=== PATIENT | male | born 1945 | race Two or more races ===

== ENCOUNTER 2019-01-12 06:35 | Emergency (ER) | payer MEDICARE, BC ==
[~2019-01-12] VITALS: Ht 193 cm; Wt 104.8 kg
[~2019-01-12 06:35] MED LIST: AMIO200T4; AMIO200T4 PO; LOSA1TAB42; LOSA1TAB42 PO; METO-356 PO; METO25TA6; RANO500T3 PO; RIVA10TA PO; RIVA20TA
[2019-01-12 07:07] LABS: *BILIRUBIN,URIN NEGATIVE (NEGATIVE); *CLARITY,URINE CLEAR (CLEAR); *COLOR,URINE LIGHT YELLOW (YELLOW); *KETONES,URINE NEGATIVE (NEGATIVE); *UROBILINOGEN,URINE 0.2 E.U./dl (NORMAL); LEUKOCYTE ESTERASE ,URINE NEGATIVE (NEGATIVE); NITRITE, URINE NEGATIVE (NEGATIVE); UGLUCOSE NEGATIVE (NEGATIVE)
[2019-01-12 07:12] LABS: *BLOOD, URINE TRACE LYSED (NEGATIVE)
[2019-01-12 07:15] LABS: SQUAMOUS EPITHELIAL CELL,UR NONE SEEN /HPF (NONE SEEN)
[2019-01-12 07:16] LABS: BACTERIA,URINE NONE SEEN /HPF (NONE SEEN); RBC,URINE 0-3 /HPF (0-3); WBC,URINE 0-3 /HPF (0-3)
[2019-01-12 07:26] VITALS: BP 149/100
--- NOTE | 2019-01-12 07:26 | NUR ---
Patient discharged to home in stable conditon. Written and verbal after care instructions given. Patient verbalizes understanding of instructions.
== END 2019-01-12 07:27 | disposition home or self-care (01) ==
LOC: ER 06:37
DX: E27.8 Other specified disorders of adrenal gland (principal); I10 Essential (primary) hypertension; R35.0 Frequency of micturition; R39.15 Urgency of urination; Z79.899 Other long term (current) drug therapy
CPT/HCPCS: A4663

== ENCOUNTER 2020-02-15 00:13 | Emergency (ER) | payer MEDICARE, BC ==
[~2020-02-15] VITALS: Ht 193 cm; Wt 108.9 kg
[2020-02-15] MEDS ORDERED: TAMS-3 PO (00:28)
--- NOTE | 2020-02-15 01:05 | NUR ---
Dr Waller at bedside.
[2020-02-15] MEDS ORDERED: KETOROLAC TROMETHAMINE 15 MG INJ IVP ONE (01:15)
[2020-02-15] MEDS ORDERED: IV NORMAL SALINE 500 ML BAG IV ONE (01:15)
[2020-02-15 01:26] LABS: BASOPHILS % (AUTO) 0.8 % (0.0-2.0); EOSINOPHILS # (AUTO) 0.1 K/uL (0.0-0.7); EOSINOPHILS % (AUTO) 2.2 % (0.0-7.0); HEMATOCRIT 43.9 % (36.7-47.1); LYMPHOCYTES % (AUTO) 19.8 % (20.5-51.5); MEAN CORPUSCULAR HEMOGLOBIN 31.1 uug (23.8-33.4); MEAN CORPUSCULAR HGB CONC 34 g/dL (32.5-36.3); MONOCYTES # (AUTO) 0.5 K/uL (2.0-10.0); MONOCYTES % (AUTO) 8.9 % (0.0-11.0); NEUTROPHILS # (AUTO) 3.6 K/uL (1.8-8.9); NEUTROPHILS % (AUTO) 68.3 % (38.5-71.5); PLATELET COUNT (AUTO) 127 K/uL (152-348); RED BLOOD CELL COUNT(AUTO) 4.82 MIL/uL (4.06-5.63); WHITE BLOOD COUNT (AUTO) 5.3 K/uL (3.6-10.2)
[2020-02-15 01:39] LABS: CARBON DIOXIDE 26 mmol/L (21-32); CHLORIDE 102 mmol/L (98-107); CREATININE 1.4 mg/dL (0.6-1.3); GLUCOSE 114 mg/dL (74-106); POTASSIUM 4.3 mmol/L (3.5-5.1); UREA NITROGEN, BLOOD 22 mg/dL (7-18)
[2020-02-15 01:46] LABS: ALANINE AMINOTRANSFERASE 22 U/L (16-63); ALKALINE PHOSPHATASE 53 U/L (50-136); ASPARTATE AMINOTRANSFERASE 20 U/L (15-37); BILIRUBIN,DIRECT 0.1 mg/dL (0.0-0.2); BILIRUBIN,TOTAL 0.6 mg/dL (0.2-1.0); CREATINE KINASE, TOTAL 195 U/L (39-308); TOTAL PROTEIN, SERUM 7.4 g/dL (6.4-8.2)
[2020-02-15] MEDS ORDERED: KETOROLAC TROMETHAMINE 15 MG INJ ONE (01:57)
--- NOTE | 2020-02-15 02:10 | NUR ---
Pt went down for pain. Addendum: 02/15/20 at 0400 by JOVANNA Pt went down for CT, stable condition.
[2020-02-15 02:22] LABS: *BILIRUBIN,URIN NEGATIVE (NEGATIVE); *CLARITY,URINE CLEAR (CLEAR); *COLOR,URINE YELLOW (YELLOW); *KETONES,URINE NEGATIVE (NEGATIVE); *UROBILINOGEN,URINE 0.2 E.U./dl (NORMAL); LEUKOCYTE ESTERASE ,URINE NEGATIVE (NEGATIVE); NITRITE, URINE NEGATIVE (NEGATIVE); PH,URINE 5.5 (5.0-8.0); UGLUCOSE NEGATIVE (NEGATIVE)
[2020-02-15 02:23] LABS: *BLOOD, URINE TRACE (NEGATIVE)
[2020-02-15] MEDS ORDERED: FAMOTIDINE 20 MG TABLET PO ONE (02:30)
--- NOTE | 2020-02-15 02:30 | NUR ---
Pt back from CT, stable, placed in comfortable position.
[2020-02-15 02:34] LABS: BACTERIA,URINE NONE SEEN /HPF (NONE SEEN); RBC,URINE 0-3 /HPF (0-3); SQUAMOUS EPITHELIAL CELL,UR NONE SEEN /HPF (NONE SEEN); WBC,URINE NONE SEEN /HPF (0-3)
[2020-02-15] MEDS ORDERED: FAMOTIDINE 20 MG TABLET ONE (02:57)
--- NOTE | 2020-02-15 04:17 | NUR ---
Patient discharged to home in stable condition. Written and verbal after care instructions given. Patient verbalizes understanding of instructions. Provided copies of laboratory results and imaging tests, and advised to follow up with primary care physician and ground control approach technician per MD's referral. Stressed follow up or return to ER for worsening s/s. Pt ambulated out of ER in steady gait.
[2020-02-15 04:19] VITALS: BP 153/118
== END 2020-02-15 04:20 | disposition home or self-care (01) ==
LOC: ER 00:15
DX: R10.9 Unspecified abdominal pain (principal); W18.39XA Other fall on same level, initial encounter; Y93.01 Activity, walking, marching and hiking; Y92.019 Unspecified place in single-family (private) house as the place of occurrence of the external cause; I48.91 Unspecified atrial fibrillation; Z79.01 Long term (current) use of anticoagulants; I12.9 Hypertensive chronic kidney disease with stage 1 through stage 4 chronic kidney disease, or unspecified chronic kidney disease; N18.9 Chronic kidney disease, unspecified; Z79.899 Other long term (current) drug therapy; G93.0 Cerebral cysts; M51.36 Other intervertebral disc degeneration, lumbar region; G31.9 Degenerative disease of nervous system, unspecified; M43.12 Spondylolisthesis, cervical region
CPT/HCPCS: 36415; 70450; 72125; 74176; 80048; 80076; 80307; 81001; 82550; 84484; 85025; 85730; 96361; 96374; 99285; J1885; 70030-TC; A4663; G0480; J7030